=== PATIENT | male | born 1975 | race Caucasian/White ===

== ENCOUNTER 2017-02-08 09:16 | Emergency (ER) | payer MEDICAID ==
[2017-02-08] MEDS ORDERED: ASPIRIN 325 MG TABLET PO ONE (09:50)
--- NOTE | 2017-02-08 09:55 | Emergency Department Record ---
History of Present Illness - General Chief complaint: Extremity Problem Stated complaint: LEFT ARM/SHOULDER PAIN Time Seen by Provider: 02/08/17 09:40 Source: Patient Mode of Arrival: Ambulatory - History of Present Illness Initial comments: The patient states that he has had left shoulder and arm pain since Tuesday morning 02-06-17. He states it hurts more with movement and radiated down his left arm on the underside to his elbow. 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 He is being treated with Toprol for a rapid heart beat and has been given nitro at home to take as needed for chest pains. This morning he states his shoulder pain goes into his left upper pectoralis region and has been there since he woke up this morning around 7. He typically needs to take a nitro for chest pain almost daily, but not always. He denies AL, PE, CVA. 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 He saw his PCP for this yesterday who ordered a CXR and shoulder xray which he has not yet obtained. He smokes about 5 cigarettes a day, is not a diabetic, htn, and denies having elevated cholesterol. He states his two grandparents had AL's in their 50's. He also has had pneumonia in the past. MD Complaint: Extremity pain Onset/Timin -: Days(s) Location: Left, Arm, Shoulder History of Same: Yes Severity scale (1-10): 8 Quality: Sharp Consistency: Constant Improves with: Nothing Worsens with: Nothing - Related Data Home Medications Medication Instructions Recorded Confirmed Last Taken Albuterol Sulfate [Proair Hfa] 1 puff IH DAILY 02/08/17 02/08/17 Unknown Duloxetine HCl [Cymbalta] 90 mg PO DAILY 02/08/17 02/08/17 Unknown Metoprolol Succinate 50 mg PO DAILY 02/08/17 02/08/17 Unknown Nitroglycerin 0.4 mg SL ASDIR PRN 02/08/17 02/08/17 Unknown Quetiapine Fumarate [Seroquel] 400 mg PO DAILY 02/08/17 02/08/17 Unknown Previous Rx's Medication Instructions Recorded Hydrocodone/Acetaminophen [Waite 1 tab PO Q6H PRN #7 tab 02/08/17 5mg/325mg] Allergies Allergy/AdvReac Type Severity Reaction Status Date / Time pseudoephedrine HCl Allergy BEHAVIORAL Verified 02/08/17 09:25 [From [facility]] CHANGES Travel Screening - Travel/Exposure Within Last 30 Days Have you traveled within the last 30 days?: No Review of Systems Reviewed: No additional complaints except as noted below Constitutional: Reports: As per HPI. Denies: Chills, Fever, Malaise, Night sweats, Weakness, Weight change Eyes: Reports: As per HPI. Denies: Eye discharge, Eye pain, Photophobia, Vision change ENT: Reports: As per HPI. Denies: Congestion, Dental pain, Ear pain, Epistaxis , Hearing loss, Throat pain Respiratory: Reports: As per HPI. Denies: Cough, Dyspnea, Hemoptysis, Stridor, Wheezes Cardiovascular: Reports: As per HPI. Denies: Arrhythmia, Chest pain, Dyspnea on exertion, Edema, Murmurs, Orthopnea, Palpitations, Paroxysmal nocturnal dyspnea, Rheumatic Fever, Syncope Endocrine: Reports: As per HPI. Denies: Fatigue, Heat or cold intolerance, Polydipsia, Polyuria Gastrointestinal: Reports: As per HPI. Denies: Abdominal pain, Constipation, Diarrhea, Hematemesis, Hematochezia, Melena, Nausea, Vomiting Genitourinary: Reports: As per HPI. Denies: Dysuria, Frequency, Hematuria, Incontinence, Retention, Testicular pain, Testicular mass, Urgency Musculoskeletal: Reports: As per HPI. Denies: Arthralgia, Back pain, Gout, Joint swelling, Myalgia, Neck pain Skin: Reports: As per HPI. Denies: Bruising, Change in color, Change in hair/ nails, Lesions, Pruritus, Rash Neurological: Reports: As per HPI. Denies: Abnormal gait, Confusion, Headache, Numbness, Paresthesias, Seizure, Tingling, Tremors, Vertigo, Weakness Psychiatric: Reports: As per HPI. Denies: Anxiety, Auditory hallucinations, Depression, Homicidal thoughts, Suicidal thoughts, Visual hallucinations Hematological/Lymphatic: Reports: As per HPI. Denies: Anemia, Blood Clots, Easy bleeding, Easy bruising, Swollen glands Past Medical History - SOCIAL HISTORY Smoking Status: Current every day smoker Alcohol Use: None Drug Use: None - RESPIRATORY Hx Respiratory Disorders: No - CARDIOVASCULAR Hx Cardio Disorders: Yes Comment:: tachycardic - NEURO Hx Neuro Disorders: No - GI Hx GI Disorders: No - Hx Genitourinary Disorders: No - ENDOCRINE Hx Endocrine Disorders: No - MUSCULOSKELETAL Hx Musculoskeletal Disorders: Yes Comment:: chronic left shoulder pain - PSYCH Hx Psych Problems: Yes Hx Depression: Yes - HEMATOLOGY/ONCOLOGY Hx Hematology/Oncology Disorders: No Family Medical History Any Significant Family History?: No Physical Exam - General General Appearance: Alert, Oriented x3, Cooperative, No acute distress - Head Head exam: Normal inspection - Eye Eye exam: Normal appearance, PERRL, EOMI Pupils: Normal accommodation - ENT ENT exam: Normal exam, Mucous membranes moist, Normal external ear exam, Normal orophraynx, TM's normal bilaterally Ear exam: Normal external inspection. negative: External canal tenderness Nasal Exam: Normal inspection. negative: Discharge, Sinus tenderness Mouth exam: Normal external inspection, Tongue normal Teeth exam: Normal inspection. negative: Dental caries Throat exam: Normal inspection. negative: Tonsillar erythema, Tonsillar exudate - Neck Neck exam: Normal inspection, Full ROM. negative: Lymphadenopathy, Meningismus , Tenderness - Respiratory Respiratory exam: Normal lung sounds bilaterally. negative: Accessory muscle use, Chest wall tenderness, Rales, Respiratory distress, Rhonchi, Stridor, Wheezes - Cardiovascular Cardiovascular Exam: Regular rate, Normal rhythm, Normal heart sounds - GI/Abdominal GI/Abdominal exam: Soft, Normal bowel sounds. negative: Distended, Tenderness - Rectal Rectal exam: Deferred - exam: Deferred - Extremities Extremities exam: Normal inspection, Full ROM, Normal capillary refill. negative: Calf tenderness, Pedal edema, Tenderness - Back Back exam: Reports: Normal inspection, Full ROM. 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 Pulses and color/temp/cap refill normal and equal bilaterally. No swelling of arm.), Normal gait, Oriented X3, Reflexes normal - Psychiatric Psychiatric exam: Normal affect, Normal mood - Skin Skin exam: Dry, Intact, Normal color, Warm Course Vital Signs 02/08/17 09:19 Temperature 97.3 F L Pulse Rate 78 Respiratory 22 Rate Blood Pressure 126/86 Pulse Ox 98 - Reevaluation(s) Reevaluation #1: Reviewed Transthoracic Echo report from 11-30-16 which was essentially normal with 58% perfusion by Barcenas's method. His myocardial perfusion imaging report from 11-30-[address] response, and normal LV myocardial perfusion, normal global stress LV function, normal stress LV volume and normal stress LV wall motion. Reviewed old EKG from 09-12-16 which was essentially unchanged from today's reading. 02/08/17 11:12 Medical Decision Making - Management Options MDM Management: No Additional Work-up Planned (Follow up with PCP for MRI of cervical spine as needed for radiculopathy.) - Data Complexity MDM Data: Labs Ordered and/or Reviewed, X-Ray Ordered and/or Reviewed (CXR: No acute abnormality. Minor reversal of nl. cervical lordosis; ? bilater neuroforaminal narrowing at several mid-joint levels. per radiologist. Normal shoulder xray.), EKG Ordered and/or Reviewed, Decision to Obtain Old Record, Review and Summary of Old Record Discussed - Lab Data Result diagrams: 02/08/17 10:05 02/08/17 10:05 - EKG Data -: EKG Interpreted by Me EKG: No Acute Changes (LAD, IVCD, awaiting prior from [employer] office.) Disposition Disposition: Discharge Clinical Impression: Cervical radiculopathy, Left arm pain Disposition: Home, Self-Care Condition: (1) Good Instructions: Cervical Radiculopathy (ED) Additional Instructions: Call PCP for follow up for cervical radiculopathy for further work up to be seen as previously arranged. Work restriction: No lifting bending over with arms. Waite as directed as needed for pain. Continue to decrease smoking and decrease drinking pop. Switch over to sugar free such as tea and water. Prescriptions: Hydrocodone/Acetaminophen [Waite 5mg/325mg] 1 tab PO Q6H PRN #7 tab PRN Reason: Pain - General Forms: Patient Portal Access
[2017-02-08] MEDS ORDERED: KETOROLAC 30 MG/ML VIAL IVP ONE (10:05)
[2017-02-08 10:13] LABS: BASO % 0.8 % (0-6); EOS % 0.6 % (0-6); GRAN % 68.8 % (47-80); HEMATOCRIT 44.4 % (42.0-52.0); HEMOGLOBIN 14.7 gm/dl (14.0-18.0); LYMPH % 19.7 % (16-45); MEAN CELL VOLUME 91.7 fl (81-97); MEAN CORPUSCULAR HEMOGLOBIN 30.4 pg (27-33); MEAN CORPUSCULAR HGB CONC 33.1 g/dl (32-36); MONO % 10.1 % (0-9); PLATELET COUNT 207 K/uL (130-400); RED BLOOD COUNT 4.84 M/uL (4.40-5.70); RED CELL DISTRIBUTION WIDTH 12.2 % (11.5-14.5); WHITE BLOOD COUNT W/O DIFF 6.2 K/uL (4.2-12.2)
[2017-02-08 10:26] LABS: ANION GAP 4.7 (7-16); BLOOD UREA NITROGEN 6 mg/dL (9-20); CARBON DIOXIDE 30.3 mmol/L (22-30); CREATINE PHOSPHOKINASE 37 U/L (55-170); EST GLOMERULAR FILTRATION RATE > 60 ml/min; GLUCOSE,RANDOM 67 mg/dL (70-110)
[2017-02-08 10:28] LABS: PROTHROMBIN TIME (PATIENT) 11.3 SECONDS (9.5-12.1)
[2017-02-08 10:38] LABS: CKMB 0.5 ug/L (0-6); TROPONIN I < 0.012 ng/mL (0.00-0.034)
--- NOTE | 2017-02-10 13:00 | RADIOLOGY REPORT ---
EXAM: CERVICAL SPINE COMPLETE HISTORY: NECK PAIN EXTENDING INTO THE LEFT UPPER EXTREMITY. TECHNIQUE: AP, oblique, and lateral views of the cervical spine were obtained as well as lateral swimmer's and odontoid views. Comparison: None. FINDINGS: There is normal bone mineralization. There is mild reversal of the normal cervical lordosis centered at the C3-C4 level. The vertebral bodies are otherwise normal in alignment and height. The intervertebral disks are grossly maintained. The facet joints are maintained. There is minor bilateral neural foraminal narrowing questioned at the C3-C4 and C4-C5 levels on the right and minor left neural foraminal narrowing at the C3-C4, C4-C5 and C5-C6 levels on the left due to uncovertebral joint spurring. IMPRESSION: 1. NO ACUTE OSSEOUS OR LIGAMENTOUS ABNORMALITY IDENTIFIED. 2. MILD REVERSAL OF THE NORMAL CERVICAL LORDOSIS LIKELY DUE TO POSITIONING OR MUSCLE SPASM. 3. MINIMAL BILATERAL NEURAL FORAMINAL NARROWING QUESTIONED DUE TO UNCOVERTEBRAL JOINT SPURRING. JOB NUMBER: [id number] [facility]
--- NOTE | 2017-02-10 13:03 | RADIOLOGY REPORT ---
EXAM: CHEST, TWO VIEWS HISTORY: LEFT SIDED CHEST PAIN EXTENDING INTO THE LEFT ARM. TECHNIQUE: Upright PA and lateral views of the chest were obtained. Comparison: None. FINDINGS: The cardiomediastinal silhouette is normal in size and configuration and the pulmonary vasculature is nondilated. Minor biapical lung scarring questioned. The lungs and pleural spaces are otherwise clear. The osseous structures are intact. IMPRESSION: NO EVIDENCE OF ACUTE CARDIOPULMONARY DISEASE. MINOR BIAPICAL LUNG SCARRING. JOB NUMBER: [id number] [facility]
--- NOTE | 2017-02-10 13:05 | RADIOLOGY REPORT ---
EXAM: LEFT SHOULDER COMPLETE HISTORY: LEFT ARM PAIN. NO KNOWN INJURY. TECHNIQUE: Internal and external humerus rotation AP views of the left shoulder were performed including scapular Y-view. Comparison: None. Encounter: Initial. FINDINGS: There is normal bone mineralization. No fracture, dislocation, or destructive bone lesion is seen. The articular relations are maintained and no periarticular soft tissue abnormality is seen. IMPRESSION: NORMAL LEFT SHOULDER. JOB NUMBER: [id number] [facility]
== END 2017-02-08 12:42 | disposition home or self-care (01) ==
LOC: ER 09:16
DX: M54.12 Radiculopathy, cervical region (principal); M79.622 Pain in left upper arm; M25.512 Pain in left shoulder; F17.210 Nicotine dependence, cigarettes, uncomplicated
CPT/HCPCS: 99284 ×2; 96374; 82550; 85025; 85730; 85610; 82553; 84484; 80048; 71020; 72050; 73030; 93005; 93010; J1885

== ENCOUNTER 2017-03-29 16:20 | Emergency (ER) | payer MEDICAID ==
[2017-03-29] MEDS ORDERED: KETOROLAC 30 MG/ML VIAL IM ONE (16:36)
--- NOTE | 2017-03-29 16:43 | Emergency Department Record ---
History of Present Illness - General Chief Complaint: Neck Injury/Pain Stated Complaint: NECK PAIN Time Seen by Provider: 03/29/17 16:29 Source: Patient Mode of Arrival: Ambulatory Limitations: No limitations - History of Present Illness Initial Comments: The patient is here due to a 2 month hx of L posterior neck pain. He states he woke up with the pain 2 months ago and it now is not better. He has been seen in the ER and was diagnosed with a cervical radiculopathy and also did see his PCP and possibly is being scheduled for an MRI. He has been taking Eminence for the pain but now is out. He has had L arm and hand tingling and weakness but that is not new and is no different today compared to the last 2 months. The patient denies any trauma, injury, CP, SOB, or leg weakness or numbness. Complaint: Neck pain Onset/Timin -: Month(s) Place: Home Radiation: Other Severity: Moderate Severity scale (1-10): 7 Quality: Sharp, Stabbing Consistency: Constant Improves With: None Worsens With: None Associated Symptoms: Headache - Related Data Home Medications Medication Instructions Recorded Confirmed Last Taken Albuterol Sulfate [Proair Hfa] 1 puff IH DAILY 02/08/17 03/29/17 Unknown Duloxetine HCl [Cymbalta] 90 mg PO DAILY 02/08/17 03/29/17 Unknown Metoprolol Succinate 50 mg PO DAILY 02/08/17 03/29/17 Unknown Nitroglycerin 0.4 mg SL ASDIR PRN 02/08/17 03/29/17 Unknown Quetiapine Fumarate [Seroquel] 400 mg PO DAILY 02/08/17 03/29/17 Unknown Previous Rx's Medication Instructions Recorded Cyclobenzaprine HCl [Flexeril] 10 mg PO TID PRN #20 tablet 03/29/17 Naproxen [Naprosyn] 500 mg PO BID #14 tablet. 03/29/17 Allergies Allergy/AdvReac Type Severity Reaction Status Date / Time pseudoephedrine HCl Allergy BEHAVIORAL Verified 03/29/17 16:28 [From [facility]] CHANGES Travel Screening - Travel/Exposure Within Last 30 Days Have you traveled within the last 30 days?: No Review of Systems Constitutional: Denies: Chills, Fever Eyes: Denies: Eye discharge ENT: Denies: Congestion Respiratory: Denies: Cough, Dyspnea Cardiovascular: Denies: Chest pain Past Medical History - SOCIAL HISTORY Smoking Status: Current every day smoker Alcohol Use: None Drug Use: None - RESPIRATORY Hx Respiratory Disorders: No - CARDIOVASCULAR Hx Cardio Disorders: Yes Comment:: tachycardic - NEURO Hx Neuro Disorders: No - GI Hx GI Disorders: No - Hx Genitourinary Disorders: No - ENDOCRINE Hx Endocrine Disorders: No - MUSCULOSKELETAL Hx Musculoskeletal Disorders: Yes Comment:: chronic left shoulder pain - PSYCH Hx Psych Problems: Yes Hx Anxiety: Yes Hx Depression: Yes Comment:: bipolar - HEMATOLOGY/ONCOLOGY Hx Hematology/Oncology Disorders: No Family Medical History Any Significant Family History?: No Physical Exam - General General Appearance: Alert, Oriented x3, Cooperative, No acute distress - Head Head exam: Atraumatic, Normocephalic, Normal inspection - Eye Eye exam: Normal appearance, PERRL - Neck Neck exam: Normal inspection, Full ROM, Tenderness (There is mild L posterior tenderness which does reproduce his pain.). negative: Lymphadenopathy, Meningismus - Respiratory Respiratory exam: Normal lung sounds bilaterally. negative: Respiratory distress - Cardiovascular Cardiovascular Exam: Regular rate, Normal rhythm, Normal heart sounds - GI/Abdominal GI/Abdominal exam: Soft, Normal bowel sounds. negative: Tenderness - Extremities Extremities exam: Normal inspection, Full ROM, Normal capillary refill, Other ( the radial pulses are full and equal bilaterally.). negative: Tenderness - Neurological Neurological exam: Alert, Normal gait, Oriented X3, Reflexes normal. negative: Abnormal gait, Altered, Motor sensory deficit (The motor exam is 5/5 in the L arm except his L hand grasp that is 4+/5. The L hand does appear mildly weak but that has been a chronic issue.) - Psychiatric Psychiatric exam: negative: Agitated, Anxious - Skin Skin exam: negative: Rash Course Vital Signs 03/29/17 16:23 Temperature 97.7 F Pulse Rate 62 Respiratory 20 Rate Blood Pressure 123/91 Pulse Ox 100 - Reevaluation(s) Reevaluation #1: The patient is doing better at this time. He is ready for home and is instructed to see his PCP to obtain the cervical MRI. 03/29/17 16:54 Disposition Disposition: Discharge Clinical Impression: Cervical radiculopathy Disposition: Home, Self-Care Condition: (1) Good Instructions: Cervical Radiculopathy (ED) Additional Instructions: Please see your PCP later this week for recheck and to obtain the MRI. Please take the Naprosyn and Flexeril for pain. Please return to the ER for any worsening pain, any arm or leg numbness, weakness or any bowel or bladder incontinence. Prescriptions: Cyclobenzaprine HCl [Flexeril] 10 mg PO TID PRN #20 tablet PRN Reason: Pain Naproxen [Naprosyn] 500 mg PO BID #14 tablet.dr Forms: Patient Portal Access Time of Disposition: 16:57
== END 2017-03-29 17:05 | disposition home or self-care (01) ==
LOC: ER 16:20
DX: M54.12 Radiculopathy, cervical region (principal); R51 Headache
CPT/HCPCS: 96372; 99283; J1885

== ENCOUNTER 2017-04-14 15:55 | Emergency (ER) | payer MEDICAID ==
--- NOTE | 2017-04-14 16:03 | Emergency Department Record ---
History of Present Illness - General Stated Complaint: ALL OVER WEAKNESS Time Seen by Provider: 04/14/17 15:56 Source: Patient Mode of Arrival: EMS Limitations: No limitations - History of Present Illness Initial comments: 41 yo male presents to ED for evaluation of generalized weakness and fatigue for the past 2 days. Patient denies focal weakness, fevers, chills, or recent illness. Patient reports a history of bipolar and depression, reports that his PCP took him off his toprol, and patient takes nitro as needed for chest pain ( denies heart problems at his baseline). Patient is concerned about his fatigue symptoms mostly, reports that he went to bed last night and woke up this afternoon. Onset/Timin -: Days(s) Radiation: Non-Radiating Consistency: Constant Improves with: None Worsens with: None - Марина Coma Scale Eye Response: (4) Open spontaneously Motor Response: (6) Obeys commands Verbal Response: (5) Oriented [place] Total: 15 - Related Data Home Medications Medication Instructions Recorded Confirmed Last Taken Albuterol Sulfate [Proair Hfa] 1 puff IH DAILY 02/08/17 04/14/17 04/14/17 Duloxetine HCl [Cymbalta] 90 mg PO DAILY 02/08/17 04/14/17 04/14/17 Nitroglycerin 0.4 mg SL ASDIR PRN 02/08/17 04/14/17 04/14/17 Quetiapine Fumarate [Seroquel] 400 mg PO DAILY 02/08/17 04/14/17 04/14/17 Previous Rx's Medication Instructions Recorded Cyclobenzaprine HCl [Flexeril] 10 mg PO TID PRN #20 tablet 03/29/17 Naproxen [Naprosyn] 500 mg PO BID #14 tablet. 03/29/17 Allergies Allergy/AdvReac Type Severity Reaction Status Date / Time pseudoephedrine HCl Allergy BEHAVIORAL Verified 04/14/17 16:07 [From [facility]] CHANGES Review of Systems Constitutional: Denies: Chills, Fever, Malaise, Night sweats Eyes: Denies: Eye discharge ENT: Denies: Congestion, Ear pain Respiratory: Denies: Cough, Dyspnea Cardiovascular: Denies: Chest pain, Dyspnea on exertion Endocrine: Denies: Fatigue, Heat or cold intolerance Gastrointestinal: Denies: Abdominal pain, Nausea, Vomiting Genitourinary: Denies: Incontinence, Retention Musculoskeletal: Denies: Arthralgia, Back pain, Gout, Joint swelling Skin: Denies: Bruising, Change in color Neurological: Reports: Numbness, Weakness. Denies: Abnormal gait, Confusion, Headache, Seizure Psychiatric: Denies: Anxiety Hematological/Lymphatic: Denies: Anemia, Blood Clots Past Medical History - SOCIAL HISTORY Smoking Status: Current every day smoker Drug Use: None - RESPIRATORY Hx Respiratory Disorders: No - CARDIOVASCULAR Hx Cardio Disorders: Yes Comment:: tachycardic - NEURO Hx Neuro Disorders: No - GI Hx GI Disorders: No - Hx Genitourinary Disorders: No - ENDOCRINE Hx Endocrine Disorders: No - MUSCULOSKELETAL Hx Musculoskeletal Disorders: Yes Comment:: chronic left shoulder pain - PSYCH Hx Psych Problems: Yes Hx Anxiety: Yes Hx Depression: Yes Comment:: bipolar - HEMATOLOGY/ONCOLOGY Hx Hematology/Oncology Disorders: No Physical Exam - General General Appearance: Alert, Oriented x3, Cooperative, No acute distress Limitations: No limitations - Head Head exam: Atraumatic, Normocephalic, Normal inspection Head exam detail: negative: Abrasion, Contusion, Lo's sign, General tenderness, Hematoma, Laceration - Eye Eye exam: Normal appearance. negative: Conjunctival injection, Periorbital swelling, Periorbital tenderness, Scleral icterus - ENT Ear exam: negative: Auricular hematoma, Auricular trauma Nasal Exam: negative: Active bleeding, Discharge, Dried blood, Foreign body Mouth exam: negative: Drooling, Laceration, Muffled voice, Tongue elevation - Neck Neck exam: Normal inspection. negative: Meningismus, Tenderness - Respiratory Respiratory exam: Normal lung sounds bilaterally. negative: Rales, Respiratory distress, Rhonchi, Stridor - Cardiovascular Cardiovascular Exam: Regular rate, Normal rhythm, Normal heart sounds - GI/Abdominal GI/Abdominal exam: Soft. negative: Rebound, Rigid, Tenderness - Rectal Rectal exam: Deferred - exam: Deferred - Extremities Extremities exam: Normal inspection. negative: Calf tenderness, Pedal edema, Tenderness - Back Back exam: Denies: CVA tenderness (R), CVA tenderness (L) - Neurological Neurological exam: Alert, Motor sensory deficit (strength 3+/5 LUE, chronic for 2 months per patient), Oriented X3 - Psychiatric Psychiatric exam: Flat affect - Skin Skin exam: Normal color. negative: Abrasion Type of lesion: negative: abrasion Course - Reevaluation(s) Reevaluation #1: 04/14/17 17:20 Labs reviewed and are grossly unremarkable for an acute process. CT Brain: Nothing acute CXR: No acute process UA is pending at this time, will update the patient on all results when UA has resulted. Patient continues to rest comfortably at this time. Reevaluation #2: 04/14/17 17:36 UA has resulted and is negative for an acute process. Patient was updated on all results, no clinical evidence for acute CVA (CN's II- XII grossly intact, no new focal deficit (RUE weakness is chronic)), and the patient is otherwise stable for discharge without evidence for any bacterial illness. No evidence for Guillan-barre on examination as well. Patient agrees with the plan as discussed. 04/14/17 17:38 Medical Decision Making - Lab Data Result diagrams: 04/14/17 16:28 04/14/17 16:28 Disposition Disposition: Discharge Clinical Impression: Generalized weakness Disposition: Home, Self-Care Condition: (2) Stable Instructions: Weakness (ED) Additional Instructions: Return to ED if your symptoms worsen or if you have any concerns. Follow-up with your family doctor in 3-5 days as directed. Time of Disposition: 17:39
[2017-04-14 16:38] LABS: BASO % 0.7 % (0-6); EOS % 0.7 % (0-6); GRAN % 66.6 % (47-80); LYMPH % 23.2 % (16-45); MEAN CELL VOLUME 91.1 fl (81-97); MEAN CORPUSCULAR HEMOGLOBIN 30.4 pg (27-33); MEAN CORPUSCULAR HGB CONC 33.3 g/dl (32-36); MEAN PLATELET VOLUME 10.9 fl (7.4-10.4); MONO % 8.8 % (0-9); PLATELET COUNT 186 K/uL (130-400); RED BLOOD COUNT 5.27 M/uL (4.40-5.70); RED CELL DISTRIBUTION WIDTH 12.7 % (11.5-14.5); WHITE BLOOD COUNT W/O DIFF 6.7 K/uL (4.2-12.2)
[2017-04-14 16:50] LABS: LACTIC ACID 2.3 mmol/L (0.7-2.1)
[2017-04-14 16:56] LABS: ALB/GLOB RATIO 1.4 (1.1-1.8); ALBUMIN 4.4 gm/dL (3.5-5.0); BLOOD UREA NITROGEN 7 mg/dL (9-20); EST GLOMERULAR FILTRATION RATE > 60 ml/min; GLUCOSE,RANDOM 88 mg/dL (70-110); TOTAL PROTEIN 7.5 gm/dL (6.3-8.2)
[2017-04-14 16:57] LABS: ALKALINE PHOSPHATASE 88 U/L (38-126); ALT/SGPT 19 U/L (21-72); AST/SGOT 24 U/L (17-59); CREATININE 0.9 mg/dL (0.66-1.25)
[2017-04-14 17:31] LABS: URINE APPEARANCE CLEAR; URINE BILIRUBIN NEGATIVE (NEGATIVE); URINE BLOOD NEGATIVE (NEGATIVE); URINE COLOR YELLOW; URINE GLUCOSE (UA) NEGATIVE (NEGATIVE); URINE KETONE NEGATIVE (NEGATIVE); URINE LEUKOCYTE ESTERASE NEGATIVE (NEGATIVE); URINE NITRITE NEGATIVE (NEGATIVE); URINE PROTEIN NEGATIVE (NEGATIVE)
[2017-04-14 17:35] LABS: THYROID STIMULATING HORMONE 2.68 uIU/ml (0.465-4.68)
--- NOTE | 2017-04-16 14:13 | RADIOLOGY REPORT ---
DATE: 04/14/2017 at 16:36. EXAM: CHEST, TWO VIEWS. HISTORY: Drowsiness, weakness, and shaking. Facial numbness. Neck and head pain. TECHNIQUE: Upright PA and lateral views of the chest. COMPARISON: Two-view chest radiographic examination dated 02/08/2017. FINDINGS: The cardiomediastinal silhouette remains normal in size and configuration. The pulmonary vasculature is non-dilated. Minor bi-apical lung scarring persists. The lungs and pleural spaces are otherwise clear. Minimal levocurvature of the upper thoracic spine is redemonstrated. IMPRESSION: NO RADIOGRAPHIC EVIDENCE OF ACUTE CARDIOPULMONARY DISEASE UNCHANGED SINCE 2016. JOB NUMBER: [id number] [facility]
--- NOTE | 2017-04-16 14:40 | CT SCAN REPORT ---
DATE: 04/14/2017 at 16:33. EXAM: CT SCAN OF THE HEAD WITHOUT CONTRAST. HISTORY: Face/mouth numbness, sleepiness. TECHNIQUE: Routine noncontrast CT examination of the head is performed. COMPARISON: None. FINDINGS: The ventricles and subarachnoid spaces are normal in size. No area of abnormally increased or decreased attenuation is noted throughout the brain substance. The lambert-white interfaces are maintained. No abnormal extra-axial fluid collection is seen. The visualized paranasal sinuses and mastoid air cells are clear. The orbits as visualized are normal in appearance. IMPRESSION: NEGATIVE NONCONTRAST CT APPEARANCE OF THE HEAD. JOB NUMBER: [id number] [facility]
== END 2017-04-14 17:54 | disposition home or self-care (01) ==
LOC: ER 15:55
DX: R53.1 Weakness (principal); R20.0 Anesthesia of skin; M25.512 Pain in left shoulder; G89.29 Other chronic pain
CPT/HCPCS: 70450; 71020; 80053; 81003; 83605; 84443; 84484; 85025; 99283; 99284

== ENCOUNTER 2019-09-15 11:43 | Emergency (ER) | payer MEDICAID ==
--- NOTE | 2019-09-15 12:56 | Emergency Department Record ---
History of Present Illness - General Chief complaint: ENT Stated complaint: ENT Time Seen by Provider: 09/15/19 12:49 Source: Patient, RN notes reviewed Mode of Arrival: Ambulatory - History of Present Illness Initial comments: cough congestion no sore throat and he smokes Onset/Timin -: Days(s) Consistency: Constant Improves with: None Worsens with: None Associated Symptoms: Cough, Rhinorrhea - Related Data Home Medications Medication Instructions Recorded Confirmed Last Taken Aripiprazole [Abilifkiya Maintena] 300 mg IM MONTHLY 09/15/19 09/15/19 Unknown Previous Rx's Medication Instructions Recorded Azithromycin 250 mg PO DAILY #6 tablet 09/15/19 Allergies Allergy/AdvReac Type Severity Reaction Status Date / Time pseudoephedrine HCl Allergy BEHAVIORAL Verified 04/14/17 16:07 [From Tayla] CHANGES Travel Screening - Travel/Exposure Within Last 30 Days Have you traveled within the last 30 days?: No Review of Systems Reviewed: No additional complaints except as noted below Constitutional: Reports: As per HPI. Denies: Chills, Fever, Malaise, Night sweats, Weakness, Weight change Eyes: Reports: As per HPI. Denies: Eye discharge, Eye pain, Photophobia, Vision change ENT: Reports: As per HPI, Congestion. Denies: Dental pain, Ear pain, Epistaxis, Hearing loss, Throat pain Respiratory: Reports: As per HPI, Cough. Denies: Dyspnea, Hemoptysis, Stridor, Wheezes Cardiovascular: Reports: As per HPI. Denies: Arrhythmia, Chest pain, Dyspnea on exertion, Edema, Murmurs, Orthopnea, Palpitations, Paroxysmal nocturnal dyspnea, Rheumatic Fever, Syncope Endocrine: Reports: As per HPI. Denies: Fatigue, Heat or cold intolerance, Po lydipsia, Polyuria Gastrointestinal: Reports: As per HPI. Denies: Abdominal pain, Constipation, Diarrhea, Hematemesis, Hematochezia, Melena, Nausea, Vomiting Genitourinary: Reports: As per HPI. Denies: Dysuria, Frequency, Hematuria, Incontinence, Retention, Testicular pain, Testicular mass, Urgency Musculoskeletal: Reports: As per HPI. Denies: Arthralgia, Back pain, Gout, Joint swelling, Myalgia, Neck pain Skin: Reports: As per HPI. Denies: Bruising, Change in color, Change in hair/nails, Lesions, Pruritus, Rash Neurological: Reports: As per HPI. Denies: Abnormal gait, Confusion, Headache, Numbness, Paresthesias, Seizure, Tingling, Tremors, Vertigo, Weakness Psychiatric: Reports: As per HPI. Denies: Anxiety, Auditory hallucinations, Depression, Homicidal thoughts, Suicidal thoughts, Visual hallucinations Hematological/Lymphatic: Reports: As per HPI. Denies: Anemia, Blood Clots, Easy bleeding, Easy bruising, Swollen glands Past Medical History - SOCIAL HISTORY Smoking Status: Current every day smoker - RESPIRATORY Hx Respiratory Disorders: No - CARDIOVASCULAR Hx Cardio Disorders: Yes Comment:: tachycardic - NEURO Hx Neuro Disorders: No - GI Hx GI Disorders: No - Hx Genitourinary Disorders: No - ENDOCRINE Hx Endocrine Disorders: No - MUSCULOSKELETAL Hx Musculoskeletal Disorders: Yes Comment:: chronic left shoulder pain - PSYCH Hx Psych Problems: Yes Hx Anxiety: Yes Hx Depression: Yes Comment:: bipolar - HEMATOLOGY/ONCOLOGY Hx Hematology/Oncology Disorders: No Family Medical History Any Significant Family History?: No Physical Exam - General General Appearance: Alert, Oriented x3, Cooperative, No acute distress - Head Head exam: Normal inspection - Eye Eye exam: Normal appearance, PERRL Pupils: Normal accommodation - ENT ENT exam: Normal exam, Mucous membranes moist, Normal external ear exam, Normal orophraynx, TM's normal bilaterally Ear exam: Normal external inspection. negative: External canal tenderness Nasal Exam: Normal inspection. negative: Discharge, Sinus tenderness Mouth exam: Normal external inspection, Tongue normal Teeth exam: Normal inspection. negative: Dental caries Throat exam: Normal inspection. negative: Tonsillar erythema, Tonsillar exudate - Neck Neck exam: Normal inspection, Full ROM. negative: Tenderness - Respiratory Respiratory exam: Normal lung sounds bilaterally. negative: Respiratory distress - Cardiovascular Cardiovascular Exam: Regular rate, Normal rhythm, Normal heart sounds - GI/Abdominal GI/Abdominal exam: Soft, Normal bowel sounds. negative: Tenderness - Rectal Rectal exam: Deferred - exam: Deferred - Extremities Extremities exam: Normal inspection, Full ROM, Normal capillary refill. negative: Tenderness - Back Back exam: Reports: Normal inspection, Full ROM. Denies: Muscle spasm, Rash noted, Tenderness - Neurological Neurological exam: Alert, Normal gait, Oriented X3, Reflexes normal - Psychiatric Psychiatric exam: Normal affect, Normal mood - Skin Skin exam: Dry, Intact, Normal color, Warm Course Vital Signs 09/15/19 11:53 Temperature 98.1 F Pulse Rate [ 107 H Pulse Ox Probe] Respiratory 18 Rate Blood Pressure 125/80 [Left Arm] Pulse Ox 96 Disposition Clinical Impression: Bronchitis Disposition: Home, Self-Care Condition: (1) Good Instructions: Acute Bronchitis (ED) Additional Instructions: follow up with family DR in 3 days sooner if worse Prescriptions: Azithromycin 250 mg PO DAILY #6 tablet Time of Disposition: 12:55 Quality - Quality Measures Quality Measures: N/A - Blood Pressure Screening Does Patient Have Any of the Following: No Blood Pressure Classification: Pre-Hypertensive BP Reading Systolic Measurement: 125 Diastolic Measurement: 80 Screening for High Blood Pressure: < Pre-Hypertensive BP, F/U Documented > [[id number]] Pre-Hypertensive Follow-up Interventions: Referral to alternative/primary care provider.
== END 2019-09-15 13:03 | disposition home or self-care (01) ==
LOC: ER 11:43
DX: J20.9 Acute bronchitis, unspecified (principal); F17.210 Nicotine dependence, cigarettes, uncomplicated
CPT/HCPCS: 99283